=== PATIENT | female | born 1980 | race Caucasian/White ===

== ENCOUNTER 2016-05-31 09:31 | Observation (INO) ==
[2016-05-31] MEDS ORDERED: Ondansetron 4 MG/2 ML VIAL IVP PRN (10:56)
[2016-05-31] MEDS ORDERED: 0.9 % Sodium Chloride 1,000 ML IVC SCH (11:00)
[2016-05-31] MEDS ORDERED: Promethazine 12.5 MG in 0.9 % Sodium Chloride 50 ML IVPB PRN (11:08)
[2016-05-31] MEDS: *HR* OxyCODONE/APAP 5/325 TABLET PO PRN ×2 (11:58→18:41)
[2016-05-31 13:31] LABS: Basophils # 0.1 K/mcL (0.0-0.2); Basophils % 0.5 %; Eosinophils # 0.1 K/mcL (0.0-0.6); Hematocrit 35.1 % (35.3-44.9); Hemoglobin 11.1 g/dL (11.5-15.4); Immature Granulocytes % 0.3 % (0-4); Lymphocytes % 21.4 %; Mean Corpuscular HGB Conc 31.6 g/dL (31.6-35.5); Mean Corpuscular Hemoglobin 29.8 pg (28.0-33.3); Mean Corpuscular Volume 94.1 fL (83.0-100.0); Mean Platelet Volume 10.8 fL (9.4-12.4); Monocytes # 0.5 K/mcL (0.0-1.3); Monocytes % 5.8 %; Neutrophils # 6.5 K/mcL (1.6-8.9); Platelet Count 354 K/mcL (140-400); Red Blood Count 3.73 M/mcL (3.82-4.97); Red Cell Distribution Width 14.2 % (11.5-14.5)
[2016-05-31 13:42] LABS: BUN/Creatinine Ratio 14 (6-26); Blood Urea Nitrogen 11 mg/dL (7-20); Calcium 10.2 mg/dL (8.6-10.8); Carbon Dioxide 20 mEq/L (19-29); Chloride 105 mEq/L (98-109); Glucose 98 mg/dL (70-99); Osmolality,Calculated 293 (280-300); Potassium 4.2 mEq/L (3.5-4.5); Sodium 142 mEq/L (136-145); eGFR For African Americans > 60 (> 60); eGFR For Non-African Americans > 60 (> 60)
[2016-05-31 13:55] LABS: INR 1.2; Prothrombin Time 12.5 Seconds (9.4-12.1)
[2016-05-31 13:57] LABS: Activated Partial Thrombo Time 31.8 Seconds (26.0-36.0)
[2016-05-31] MEDS ORDERED: *HR* Promethazine 25 MG/ML VIAL ONE (14:10)
[2016-05-31] MEDS ORDERED: D5% in Water 0 ML ONE (14:10)
[2016-05-31] MEDS ORDERED: *HR* Promethazine 25 MG/ML VIAL IVP PRN (14:14)
[2016-05-31] MEDS: Vancomycin 1,250 MG in D5% in Water 250 ML IV SCH (15:21)
--- NOTE | 2016-05-31 16:31 | Orthopedic History & Physical ---
Date of Encounter: 05/31/16 Time of Encounter: 16:25 Assessment and Plan (1) Left knee pain Current visit: Yes Status: Acute Left Revision Tibial Component 04/27/16 Patient admitted for 24 hour observation secondary to increase in knee pain, N/ V and inability to ambulate. Activity: WBAT, Fall precautions, Cast placed Diet: Full Meds: Resume Home meds Start Colace 100mg PO TID prn constipation Start Zofran 4mg IV Q 6 hr prn nausea Start Percocet 5/325mg 1 tab PO Q 6 hr prn pain Start Vancomycin 1 g IV Q 12 hr dose per pharmacy Labs: CBC, Chem 7, PT/PTT Nursing: Incentive spirometer 10x Q 1 hour Foot pumps Orders: IVF NS 75 cc/hour Qualifiers: Chronicity: acute Qualified Code(s): M25.562 - Pain in left knee (2) S/P total knee replacement Current visit: Yes Status: Acute Qualifiers: Laterality: left Qualified Code(s): Z96.652 - Presence of left artificial knee joint (3) Nausea Current visit: Yes Status: Acute Started on IV Phenergan x 24 hours (4) Obesity (BMI 35.0-39.9 without comorbidity) Current visit: No Status: Chronic History of Present Illness Chief complaint: Increased Pain to Left Knee HPI: Ms. Cast is a 35 year old female, seen in the clinic today. s/p Left Revision Tibial component 04/27/16 with Patient is doing fair, she went ED today at [place] to remove her cast secondary to increase in her pain. She was seen 05/23/16 in the office secondary to worsening of pain and incision bleeding. She was started on Doxycycline at that time. 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 We discussed pain medication in depth. She has been on Tramadol and Percocet. ROM is difficult secondary to pain, and she is unable to WB on extremity secondary to pain. \. She will continue in cast to protect incision, patient is extremely active and we dicussed the additional protection needed to incision. Incision cleansed, MEsalt and Optifoam placed. Long leg cast placed. ICE and elevation, rest when swelling occurs. Notes: The Supervising Physician was available throughout the course of this treatment encounter. They were actively involved in all elements of the patient' s care to include diagnosis, care plan, and decision making and will be involved in the appropriate follow up care. Past Med Surg Social Fam HX - Past Medical History Medical history: cancer, migraine Psychiatric history: no psych history - Past Surgical History Surgical History: appendectomy, cholecystectomy, hysterectomy - Social History Smoking Status: Never smoker Smokeless Tobacco Status: No Alcohol use: none Drug use: none - Family History Mother Living Status: Hx Family Cancer: Yes Medications and Allergies Anastrozole [Arimidex] 1 mg PO HS 04/27/16 [History] Ferrous Sulfate [Iron] 325 mg PO HS 04/27/16 [History] Topiramate 50 mg PO BID 04/27/16 [History] Butalb/Acetaminophen/Caffeine [Fioricet 50-300-40 mg Capsule] 1 each PO Q8H PRN 05/31/16 [History] Doxycycline Hyclate [Morgidox] 100 mg PO Q12H 05/31/16 [History] Ondansetron ODT [Zofran ODT] 4 mg SL Q8H PRN 05/31/16 [History] Oxycodone HCl/Acetaminophen [Percocet 5-325 mg Tablet] 1 each PO Q6H PRN [History] Allergies metoclopramide [From Reglan] Allergy (Verified 05/31/16 11:32) Agitated morphine Allergy (Verified 05/31/16 11:32) Hives NSAIDS (Non-Steroidal Anti-Inflamma Allergy (Verified 05/31/16 11:32) Anaphylaxis prochlorperazine [From Compazine] Allergy (Verified 05/31/16 11:32) Agitated Sulfa (Sulfonamide Antibiotics) Allergy (Verified 05/31/16 11:32) Anaphylaxis vancomycin Adverse Reaction (Verified 05/31/16 11:32) Migraine All Systems Reviewed: A 10-system review of systems was performed and is negative for pertinent findings except as documented above in the HPI. - Constitutional Constitutional: as per HPI, frequent falls, weakness, other (N/V), no fever(s) - Cardiovascular Cardiovascular: as per HPI, no chest pain - Respiratory Respiratory: as per HPI, no cough - Musculoskeletal Musculoskeletal: abnormal gait, back pain, joint swelling, limited range of motion, muscle weakness, radiating pain into limb, no numbness Physical Exam - Constitutional Vitals: Temp Pulse Resp BP Pulse Ox 98.5 F 81 18 108/73 100 05/31/16 14:59 05/31/16 14:59 05/31/16 14:59 05/31/16 14:59 05/31/16 14:59 - Knee left Appearance: previous incision (clean, dry - proximal wound gapping minimal; no active drainage) Varus alignment in stance: No Valgus alignment in stance: No Tenderness with palpation knee: anterior, medial, lateral Pain: with flexion, with extension Gait: limping ROM: extension knee: Limited ROM: flexion knee: Limited Results - Labs Result Diagrams: 05/31/16 13:20 05/31/16 13:20 Labs: Abnormal lab results RBC 3.73 M/mcL (3.82-4.97) L 05/31/16 13:20 Hgb 11.1 g/dL (11.5-15.4) L 05/31/16 13:20 Hct 35.1 % (35.3-44.9) L 05/31/16 13:20 PT 12.5 Seconds (9.4-12.1) H 05/31/16 13:20 H & H 05/31/16 Range/Units 13:20 Hgb 11.1 L (11.5-15.4) g/dL Hct 35.1 L (35.3-44.9) % All other labs normal. - Diagnostic results Knee x-ray: report reviewed, image reviewed - VTE Documentation of Mechanical Device: Venous foot pump, device
[2016-05-31] MEDS ORDERED: Acetaminophen IV 1,000 MG/100 ML INFUS..BTL IVPB PRN (17:20)
[2016-05-31] MEDS ORDERED: Vancomycin 1,000 MG in D5% in Water 250 ML IVPB SCH (18:00)
[2016-05-31] MEDS: *HR* Promethazine 25 MG/ML VIAL IVP PRN (18:43)
[2016-06-01] MEDS: Vancomycin 1,250 MG in D5% in Water 250 ML IV SCH (01:47)
[2016-06-01] MEDS: *HR* Promethazine 25 MG/ML VIAL IVP PRN ×3 (01:48→12:10)
[2016-06-01] MEDS: *HR* OxyCODONE/APAP 5/325 TABLET PO PRN (01:48)
--- NOTE | 2016-06-01 07:55 | Discharge Summary ---
Date of Encounter: 06/01/16 Time of Encounter: 07:53 - Discharge Diagnosis (1) Left knee pain Priority: Primary Status: Acute Qualifiers: Chronicity: acute Qualified Code(s): M25.562 - Pain in left knee (2) Nausea Priority: Secondary Status: Chronic (3) Obesity (BMI 35.0-39.9 without comorbidity) Priority: Secondary Status: Chronic - Discharge Medications Prescriptions: Doxycycline Hyclate [Morgidox] 100 mg PO Q12H #20 capsule OxyCODONE/APAP 5/325 [Percocet 5/325 MG] 1 - 2 each PO Q6HR PRN #40 tablet PRN Reason: Pain Home Medications: Anastrozole [Arimidex] 1 mg PO HS 04/27/16 [History] Ferrous Sulfate [Iron] 325 mg PO HS 04/27/16 [History] Topiramate 50 mg PO BID 04/27/16 [History] Butalb/Acetaminophen/Caffeine [Fioricet 50-300-40 mg Capsule] 1 each PO Q8H PRN 05/31/16 [History] Ondansetron ODT [Zofran ODT] 4 mg SL Q8H PRN 05/31/16 [History] Oxycodone HCl/Acetaminophen [Percocet 5-325 mg Tablet] 1 each PO Q6H PRN [History] Doxycycline Hyclate [Morgidox] 100 mg PO Q12H #20 capsule 06/01/16 [Rx] OxyCODONE/APAP 5/325 [Percocet 5/325 MG] 1 - 2 each PO Q6HR PRN #40 tablet 06/01 [Rx] Allergies/Adverse Reactions: Allergies metoclopramide [From Reglan] Allergy (Verified 05/31/16 11:32) Agitated morphine Allergy (Verified 05/31/16 11:32) Hives NSAIDS (Non-Steroidal Anti-Inflamma Allergy (Verified 05/31/16 11:32) Anaphylaxis prochlorperazine [From Compazine] Allergy (Verified 05/31/16 11:32) Agitated Sulfa (Sulfonamide Antibiotics) Allergy (Verified 05/31/16 11:32) Anaphylaxis vancomycin Adverse Reaction (Verified 05/31/16 11:32) Migraine Labs on day of discharge: Labs from last 24 hours 05/31/16 05/31/16 05/31/16 13:20 13:20 13:20 WBC 9.2 RBC 3.73 L Hgb 11.1 L Hct 35.1 L MCV 94.1 MCH 29.8 MCHC 31.6 RDW 14.2 Plt Count 354 MPV 10.8 Immature Gran % 0.3 Seg Neutrophils % 71.0 Lymphocytes % 21.4 Monocytes % 5.8 Eosinophils % 1.0 Basophils % 0.5 Neutrophils # 6.5 Lymphocytes # 2.0 Monocytes # 0.5 Eosinophils # 0.1 Basophils # 0.1 PT 12.5 H INR 1.2 APTT 31.8 Sodium 142 Potassium 4.2 Chloride 105 Carbon Dioxide 20 BUN 11 Creatinine 0.77 Est GFR ( Amer) > 60 Est GFR (Non-Af Amer) > 60 BUN/Creatinine Ratio 14 Glucose 98 Calculated Osmolality 293 Calcium 10.2 Date of admission: 05/31/16 10:03 Primary care physician: PCP NO Consults: 05/31/16 12:27 Consult to Invasive Line Access Team [CONS] Routine Reason for Consult: no access Line Type: EPIV - Patient Status Disposition: Home, Self-Care Condition: Fair Functional capacity at discharge: uses cane/walker Overall status at discharge: patient is progressing back to baseline - Discharge Instructions Follow Up With: NO,PCP [Primary Care Provider] - - Hospital Course Hospital course: Ms. Csat is a 35 year old female - Time Spent with Patient Total time spent providing and/or coordinating discharge services: - VTE Documentation of Mechanical Device: Venous foot pump, device
--- NOTE | 2016-06-01 08:08 | Orthopedics Progress Note ---
Date of Encounter: 06/01/16 Time of Encounter: 08:07 - Assessment and Plan (1) Left knee pain Current Visit: Yes Status: Acute Qualifiers: Chronicity: acute Qualified Code(s): M25.562 - Pain in left knee (2) Nausea Current Visit: Yes Status: Chronic (3) Obesity (BMI 35.0-39.9 without comorbidity) Current Visit: No Status: Chronic Subjective Interval history: Patient seen this morning resting comfortably still complaining of pain Cast intact plan for discharge today patient has been unreasonable overnight with the staff challenging manipulating. Patient is stable for discharge Objective Vital signs: Vital Signs Temp Pulse Resp BP Pulse Ox 06/01/16 06:47 97.8 F 80 16 106/74 100 06/01/16 02:03 98.0 F 66 15 120/62 97 05/31/16 20:16 97.7 F 78 15 111/78 95 05/31/16 14:59 98.5 F 81 18 108/73 100 05/31/16 10:19 98.5 F 80 16 130/84 95 Intake and Output 05/31/16 06/01/16 06/01/16 23:59 07:59 15:59 Intake Total 550 / 550 450 / 450 Balance 550 / 550 450 / 450 Intake: IV Fluids 350 / 350 250 / 250 Vancocin 1,250 MG In 250 / 250 250 / 250 Dextrose 5% 250 ML @ 167 mls/hr IV Q12H ESEQUIEL Rx#: [id number] Ofirmev 1,000 mg In 100 100 / 100 ml @ 400 mls/hr IVPB Q6HR PRN Rx#:[id number] Oral 200 / 200 200 / 200 - Labs CBC & BMP: 05/31/16 13:20 05/31/16 13:20 Labs: Abnormal lab results RBC 3.73 M/mcL (3.82-4.97) L 05/31/16 13:20 Hgb 11.1 g/dL (11.5-15.4) L 05/31/16 13:20 Hct 35.1 % (35.3-44.9) L 05/31/16 13:20 PT 12.5 Seconds (9.4-12.1) H 05/31/16 13:20 - VTE Documentation of Mechanical Device: Venous foot pump, device Consult Discharge Plan - Plan Referrals: NO,PCP [Primary Care Provider] - Prescriptions: Doxycycline Hyclate [Morgidox] 100 mg PO Q12H #20 capsule OxyCODONE/APAP 5/325 [Percocet 5/325 MG] 1 - 2 each PO Q6HR PRN #40 tablet PRN Reason: Pain
[2016-06-01] MEDS ORDERED: Scopolamine Patch 1.5 MG PATCH.TD72 TD ONE (09:44)
[2016-06-01] MEDS ORDERED: *HR* HYDROmorphone (PF) 1 MG/ML SYRINGE IVP ONE (11:50)
[2016-06-01 12:28] VITALS: BP 120/86
[2016-06-01] MEDS ORDERED: Aminoglycoside Consult 1 EACH MC ONE (12:49)
== END 2016-06-01 12:50 | disposition home or self-care (01) ==
LOC: 3NENU
PROVIDERS: ADMIT Physician Assistant; ATTEND Orthopaedic Surgery

== ENCOUNTER 2017-09-08 11:39 | Inpatient (IN) ==
[2017-09-08] MEDS ORDERED: Famotidine 20 MG/2 ML VIAL IVP ONE (11:44)
[2017-09-08] MEDS ORDERED: Scopolamine Patch 1.5 MG PATCH.TD72 TD ONE (11:44)
[2017-09-08] MEDS ORDERED: Acetaminophen IV 1,000 MG/100 ML INFUS..BTL IVPB ONE (11:45)
[2017-09-08] MEDS ORDERED: Pregabalin 75 MG CAPSULE PO ONE (11:45)
--- NOTE | 2017-09-08 11:50 | Anesthesia Evaluation PreOp ---
Date of Encounter: 09/08/17 Time of Encounter: 11:47 - Past History Planned Operation: REvision L-TKR Cardiac History: Denies any Significant Hx Pulmonary History: Denies Any Significant HX UTILIZATION REVIEW COORDINATOR History: Denies Any Significant HX Other Medical History: Other (Hx Breast CA 2010 s/p Arimidex tx) Anesthesia History: No Prior Anesthetic Complications, Past Anesthesia (C- section x 3, KNee scope x 13, Hyster, Sun, L-unicondylar knee replacement 2014 , Cement spacer/Tibial revision 2015) Alcohol Use: none Drug use: none Medications and Allergies Anastrozole [Arimidex] 1 mg PO HS 04/27/16 [History] Ferrous Sulfate [Iron] 325 mg PO HS 04/27/16 [History] Topiramate 50 mg PO BID 04/27/16 [History] Butalb/Acetaminophen/Caffeine [Fioricet 50-300-40 mg Capsule] 1 each PO Q8H PRN 05/31/16 [History] Ondansetron ODT [Zofran ODT] 4 mg SL Q8H PRN 05/31/16 [History] Oxycodone HCl/Acetaminophen [Percocet 5-325 mg Tablet] 1 each PO Q6H PRN [History] Doxycycline Hyclate [Morgidox] 100 mg PO Q12H #20 capsule 06/01/16 [Rx] OxyCODONE/APAP 5/325 [Percocet 5/325 MG] 1 - 2 each PO Q6HR PRN #40 tablet 06/01 [Rx] 3 Allergy/AdvReac Type Severity Reaction Status Date / Time metoclopramide [From Reglan] Allergy Agitated Verified 09/05/17 10:51 morphine Allergy Hives Verified 09/05/17 10:51 NSAIDS (Non-Steroidal Allergy Anaphylaxis Verified 09/05/17 10:51 Anti-Inflamma prochlorperazine Allergy Agitated Verified 09/05/17 10:51 [From Compazine] Sulfa (Sulfonamide Allergy Anaphylaxis Verified 09/05/17 10:51 Antibiotics) vancomycin AdvReac Migraine Verified 09/05/17 10:51 - Meds/Allergy Pre-op Review Medications Reviewed: Yes Allergies Reviewed: Yes Beta Blockers on Current Med List: No Anesthesia Results - Labs Laboratory Tests 05/31/16 09/05/17 09/05/17 13:20 11:15 11:15 WBC 6.1 Hgb 11.4 L Hct 35.7 Plt Count 313 PT 11.9 INR 1.1 APTT 33.5 Sodium Potassium Chloride Carbon Dioxide BUN Creatinine Est GFR (Non-Af Amer) Glucose 98 09/05/17 11:15 WBC Hgb Hct Plt Count PT INR APTT Sodium 142 Potassium 3.9 Chloride 103 Carbon Dioxide 27 BUN 8 Creatinine 0.64 Est GFR (Non-Af Amer) > 60 Glucose Anesthesia Exam O2 Sat Height 1.5 m Weight 85.275 kg O2 Sat Vital Signs Temp Pulse Resp BP Pulse Ox 98.1 F 68 18 122/76 96 09/08/17 11:56 09/08/17 11:56 09/08/17 11:56 09/08/17 11:56 09/08/17 11:56 Height: 5'0 Weight: 190# BMI = 38 NPO (# of Hours): MNOc Pain Scale Used: Numeric (1 - 10) - HEENT Pupil (Motor): Pupils equal, EOMI Mallampati: II Teeth: Normal Oral Opening: Greater than 3 - UTILIZATION REVIEW COORDINATOR LOC: Oriented UTILIZATION REVIEW COORDINATOR Motor: Normal RUE, Normal LUE, Normal RLE, Normal LLE, Normal Face UTILIZATION REVIEW COORDINATOR Sensory: Normal: RUE, LUE, RLE, LLE, Face - Cardiac Rhythm: Regular Murmur: None - Pulmonary Breath Sounds: bilateral Clear Respiratory Effort: Symmetrical Anesthesia Assess/Plan ASA Score: 3 (Obesity, Migraines, Breast CA) Modified Daniel Scale for Level of Consciousness: Cooperative, oriented, and tranquil Anesthetic Plan: General, Regional Monitoring Plan: Standard Monitors Recovery Plan: PACU Anes Supervising Prov Stmt: Pt seen/evaluated, R&B Discussed, questions answered and consent obtained - MD Destin
[2017-09-08] MEDS ORDERED: Ethanol\\Acetic Acid\\Na Ace\\Ben 1,000 ML IRRIG.SOLN IR ONE (11:54)
[2017-09-08] MEDS ORDERED: CeFAZolin Syr 2,000MG/20 ML 2,000 MG/20 ML SYRINGE IVPB ONE (11:55)
[2017-09-08] MEDS ORDERED: Ringers Solution, Lactated 1,000 ML IVC SCH (12:00)
--- NOTE | 2017-09-08 12:00 | History & Physical Report ---
Date of Encounter: 09/08/17 Time of Encounter: 12:00 24 Hour HP Update - Instructions Instructions: If the History and Physical is less than 30 days old and was completed prior to A.M. admission and or procedure and has NOT been updated on calendar day of procedure please complete this update prior to performing procedure. - Update Patient reports changes in Medical Condition: No Changes in examination, assessment, or condition: No Changes in Medication: No Preop tests/diagnostics Reviewed: Yes Surgery Remains Indicated: Yes Consent for Planned Operative Procedure(s) Verified: Yes - Pre-Operative Checklist Preoperative Checklist Indicated: No Prophylactic Antibiotic Ordered: Yes Is VTE Prophylaxis Indicated?: Yes
[2017-09-08] MEDS ORDERED: cloNIDine HCl 0.1 MG TABLET PO ONE (12:06)
[2017-09-08] MEDS ORDERED: *HR* Propofol 200 MG/20 ML VIAL IVP ONE (12:08)
[2017-09-08] MEDS ORDERED: *HR* FentaNYL (PF) 100 MCG/2 ML VIAL ONE ×2 (12:08→12:09)
[2017-09-08] MEDS ORDERED: *HR* Midazolam HCl 2 MG/2 ML VIAL ONE (12:08)
[2017-09-08] MEDS ORDERED: Lidocaine -MPF 2% 2 ML VIAL ONE ×2 (12:13→12:31)
--- NOTE | 2017-09-08 12:17 | Discharge Summary ---
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 Qualifiers: Encounter type: subsequent encounter Qualified Code(s): T84.038D - Mechanical loosening of other internal prosthetic joint, subsequent encounter; Z96.659 - Presence of unspecified artificial knee joint; Z96.659 - Presence of unspecified artificial knee joint (2) Left knee pain Status: Chronic Qualifiers: Chronicity: chronic Qualified Code(s): M25.562 - Pain in left knee; G89.29 - Other chronic pain; G89.29 - Other chronic pain (3) S/P total knee replacement Status: Acute Qualifiers: Laterality: left Qualified Code(s): Z96.652 - Presence of left artificial knee joint (4) Migraines Status: Chronic (5) Obesity (BMI 35.0-39.9 without comorbidity) Status: Chronic - Hospital Course Hospital course: Ms. Cast is a 36 year old female - Time Spent with Patient Total time spent providing and/or coordinating discharge services: - Discharge Medications Prescriptions: Rivaroxaban [Xarelto] 10 mg PO DAILY 12 Days #12 tablet Home Medications: Anastrozole [Arimidex] 1 mg PO HS 04/27/16 [History] Ferrous Sulfate [Iron] 325 mg PO HS 04/27/16 [History] Butalb/Acetaminophen/Caffeine [Fioricet 50-300-40 mg Capsule] 1 each PO Q8H PRN 05/31/16 [History] Ondansetron ODT [Zofran ODT] 4 mg SL Q8H PRN 05/31/16 [History] Fluticasone Propionate Nasal [Flonase] 1 spr NS DAILY 09/08/17 [History] Oxycodone HCl/Acetaminophen [Percocet 5-325 mg Tablet] 1 each PO Q6H 5 Days #20 tablet 09/08/17 [Rx] Rivaroxaban [Xarelto] 10 mg PO DAILY 12 Days #12 tablet 09/08/17 [Rx] Topiramate [Topiramate] 25 mg PO BID 09/08/17 [History] Allergies/Adverse Reactions: 3 Allergy/AdvReac Type Severity Reaction Status Date / Time metoclopramide [From Reglan] Allergy Agitated Verified 09/05/17 10:51 morphine Allergy Hives Verified 09/05/17 10:51 NSAIDS (Non-Steroidal Allergy Anaphylaxis Verified 09/05/17 10:51 Anti-Inflamma prochlorperazine Allergy Agitated Verified 09/05/17 10:51 [From Compazine] Sulfa (Sulfonamide Allergy Anaphylaxis Verified 09/05/17 10:51 Antibiotics) vancomycin AdvReac Migraine Verified 09/05/17 10:51 Date of admission: 09/08/17 15:50 Primary care physician: PCP NONE Consults: 09/08/17 15:56 Consult to Occupational Therapy [CONS] Routine Comment: Evaluate, develop and implement POC Reason for Consult: post knee surgery Does patient have active BEDREST order?: No Is patient medically & hemodynamically stable?: Yes Consult to Orthopedic Navigator [CONS] [CONS] Routine Consult to Physical Therapy [CONS] Routine Comment: Evaluate, develop and impliment POC Reason for Consult: post knee surgery Does patient have active BEDREST order?: No Is patient medically & hemodynamically stable?: Yes Consult to Vp Of Marketing [CONS] Routine Reason for SW Consult: post op joint replacement RT Post Op Consult [CONS] Routine Labs on day of discharge: Labs from last 24 hours 09/08/17 15:02 Hgb 9.5 L D Hct 29.1 L - Impressions ITS Impressions Knee X-Ray 09/08/17 10:06 IMPRESSION: Status post total knee arthroplasty revision without evidence for immediate postoperative hardware complication. D/ / Federico Thornton MD / Federico Thornton MD Interpreting Provider: Federico Thornton MD - Patient Status Disposition: Home Health Service Condition: Good - Discharge Instructions Instructions: Revision Total Joint Arthroplasty (DC) Follow Up With: Diamond Fuentes, PAC [Physician Special Delivery Mail Carrier] - 09/12/17 (Per Dr. Perez follow- up in monday rather than . Office to call patient tomorrow with time. ) NONE,PCP [Primary Care Provider] - Additional Instructions: Discharge Instructions: Total Knee Replacement Please call [facility] ([phone]), your Primary Care Physician, or report to the Emergency Room if you have any of the following symptoms: Nausea, vomiting, fever greater that 101.5, swelling, chest pain, shortness of breath, increased pain/redness/drainage/odor for your incision site, numbness/ tingling, or any other concerning symptoms. ACTIVITY:Weight-bearing as tolerated. You may progress off support walker as tolerated. MEDICATIONS: Upon discharge resume your home medications. Take all the medications as prescribed. Take a stool softener if taking narcotic pain medications. Stool softeners are only effective if you drink enough fluids. Drink 6-8 glass of water or fluids a day, unless this is not allowed for another health problem. Despite using stool softeners, if you haven't had a bowel movement in 3 days, please switch to a gentle laxative. Gentle laxatives are sold over the counter. You should have a bowel movement within 24 hours, if not call the office. You will be discharged from the hospital with a prescription for pain medication. You are encouraged to decrease the use of narcotic pain medication as tolerated. Should you require a refill, please call the office. [facility] prescribes narcotic pain medication for only 4-6 weeks after surgery. If you require pain medication beyond this time period, you may be referred to your Primary Care Physician or to the Pain Clinic for further evaluation. Plan ahead for refills on pain medication as many narcotics either need to be picked up at the office or mailed. It is best to call 48-72 hours in advance of needing a prescription refill so you don't run out of medication. To help control the post-operative pain, you may take NSAIDs (Aleve,Advil, Motrin, Ibuprofen, Naprosyn) or Tylenol as prescribed on the bottle in addition to the pain medication. ANTICOAGULATION (blood thinners): Continue your Aspirin, Lovenox or Coumadin as prescribed to help prevent a blood clot in the leg or in the lungs. As long as your incision remains dry and you tolerate the NSAIDs (Aleve, Advil, Motrin, ibuprofen, naprosyn), it is OK to use the NSAIDS while you are taking your anticoagulation medication. Should your incision start to drain, stop the NSAID and contact our office. Common symptoms of blood clot in the legs include: localized pain, swelling, calf tenderness, redness or discoloration of the skin. Blood clot in the lung symptoms include: shortness of breath, rapid pulse, sweating, and chest pain that worsens with deep breathing, coughing up blood, lightheadedness, feelings of anxiety. If you experience any of these symptoms notify your physician immediately, go to the emergency room, or if having trouble breathing, call 911. WOUND CARE: Leave the dressing on for 7 to 10days. You may change the dressing if it becomes saturated greater than 50%. Do not get the dressing wet at anytime. Wash your hands with antibacterial soap, rinse and dry prior to any wound care. If you have dominic the visiting nurse or rehab facility can remove the stapes 10-14 days after surgery and place steri-strips across the wound. Leave the steri-strips in place until they fall off on their won. You may let water from the shower run on top of the steri-strips. If you do not have a visiting nurse or rehab facility, you will need to return to the office at 10-14 days for the dominic to be removed. If you have itching or redness around the dressing call the office. FOLLOW-UP: Please follow up with your surgeon in the orthopedic clinic in 4 weeks from the day of surgery. If you have dominic that need to be removed, you will need to come back to the office in 10-14 days from the day of surgery. <Bacilio Perez - Last Filed: 09/11/17 14:57> Orders not resulted at time of discharge: Pending orders 09/08/17 10:05 Hemoglobin and Hematocrit [HEME] Routine 09/08/17 10:06 XR knee LT limited 1-2V [XR] Routine 09/08/17 11:52 US anesthesia pain block [US] Routine Date of Encounter: 09/11/17 Time of Encounter: 14:56 - Discharge Diagnosis (1) Aseptic loosening of prosthetic knee Priority: Primary Status: Chronic Qualifiers: Encounter type: subsequent encounter Qualified Code(s): T84.038D - Mechanical loosening of other internal prosthetic joint, subsequent encounter; Z96.659 - Presence of unspecified artificial knee joint; Z96.659 - Presence of unspecified artificial knee joint (2) Obesity (BMI 35.0-39.9 without comorbidity) Priority: Secondary Status: Chronic (3) Left knee pain Priority: Secondary Status: Chronic Qualifiers: Chronicity: chronic Qualified Code(s): M25.562 - Pain in left knee; G89.29 - Other chronic pain; G89.29 - Other chronic pain (4) Nausea Priority: Secondary Status: Chronic (5) S/P total knee replacement Priority: Secondary Status: Acute Qualifiers: Laterality: left Qualified Code(s): Z96.652 - Presence of left artificial knee joint (6) Acute blood loss anemia Priority: Primary Status: Acute - Hospital Course Hospital course: Ms. Cast is a 36 year old female Status post revision total knee patient with acute blood loss anemia received 2 units prior to discharge hematocrit on discharge 31 The patient had an uneventful postoperative course. They received antibiotics and physical therapy and were discharged in stable condition. There will follow -up in the office in 2 weeks. - Time Spent with Patient Total time spent providing and/or coordinating discharge services: Primary care physician: PCP DARYA
[2017-09-08] MEDS ORDERED: Ondansetron 4 MG/2 ML VIAL ONE (12:31)
[2017-09-08] MEDS ORDERED: Dexamethasone 4 MG/ML VIAL ONE (12:31)
[2017-09-08] MEDS ORDERED: MORPHINE SUL Oral CONC 10 MG/0.5 ML ORAL.SYG SL PRN (12:43)
[2017-09-08] MEDS ORDERED: *HR* Meperidine 25 MG/ML SYRINGE IVP PRN (12:43)
[2017-09-08] MEDS ORDERED: *HR* HYDROmorphone 2 MG TABLET PO PRN (12:43)
[2017-09-08] MEDS ORDERED: Ondansetron 4 MG/2 ML VIAL IVP ONE (12:43)
[2017-09-08] MEDS ORDERED: *HR* OxyCODONE Immed Rel 5 MG TABLET PO PRN (12:43)
[2017-09-08] MEDS ORDERED: *HR* Labetalol 20 MG/4 ML SYRINGE IVP PRN (12:43)
--- NOTE | 2017-09-08 12:56 | Physician Discharge Referral ---
Home Health/Hosp Referral Info Transfer to: Home Health Attending Provider: Dr. 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 For more information, call the [place] Tobacco Quit Line at 3-264-YNAM-NOW. - Dressing/Wound Care Site: Left knee Type of Dressing/Treatments w/Frequency: Opsite placed. Keep dressing intact until first follow up appointment. If greater than 50% saturated, notify office, remove dressing and place appropriate dressing back in place. Leave Zipline and dominic intact. Opsite dressing is water resistant, not water-proof. OK to shower, but do not get dressing wet. - Diet/Nutrition Diet/Nutrition Orders: Regular - Activity Activity Orders: Up ad kirstin, Ambulate, Chair, Walker - Services Needed Following services are medically necessary services: Nursing, Home Health Aide, Physical Therapy, Occupational Therapy Home Care Orders: Total Knee replacement Precautions x 6 weeks Apply cold therapy wrap 3-6x/day for 20 minutes at a time. Encourage ambulation throughout the day and incentive spirometer 10x/hour. Elevate affected extremity above heart as tolerated. Brace: NO KNEE MOTION - continue in brace. Remove for hygeine purposes only. - Transfer Medications Home Medications: Anastrozole [Arimidex] 1 mg PO HS 04/27/16 [History] Ferrous Sulfate [Iron] 325 mg PO HS 04/27/16 [History] Topiramate 50 mg PO BID 04/27/16 [History] Butalb/Acetaminophen/Caffeine [Fioricet 50-300-40 mg Capsule] 1 each PO Q8H PRN 05/31/16 [History] Ondansetron ODT [Zofran ODT] 4 mg SL Q8H PRN 05/31/16 [History] Oxycodone HCl/Acetaminophen [Percocet 5-325 mg Tablet] 1 each PO Q6H PRN [History] Doxycycline Hyclate [Morgidox] 100 mg PO Q12H #20 capsule 06/01/16 [Rx] OxyCODONE/APAP 5/325 [Percocet 5/325 MG] 1 - 2 each PO Q6HR PRN #40 tablet 06/01 [Rx] Oxycodone HCl/Acetaminophen [Percocet 5-325 mg Tablet] 1 each PO Q6H 5 Days #20 tablet 09/08/17 [Rx] Allergies/Adverse Reactions: 3 Allergy/AdvReac Type Severity Reaction Status Date / Time metoclopramide [From Reglan] Allergy Agitated Verified 09/05/17 10:51 morphine Allergy Hives Verified 09/05/17 10:51 NSAIDS (Non-Steroidal Allergy Anaphylaxis Verified 09/05/17 10:51 Anti-Inflamma prochlorperazine Allergy Agitated Verified 09/05/17 10:51 [From Compazine] Sulfa (Sulfonamide Allergy Anaphylaxis Verified 09/05/17 10:51 Antibiotics) vancomycin AdvReac Migraine Verified 09/05/17 10:51 Certification: Further, I certify that my clinical findings support that this patient is homebound (i.e. absences from home require considerable and taxing effort and are for medical reasons or druze services or infrequently or short duration when for other reasons) because: Homebound Reason: Post-surgery restriction and or conditions limit ability to leave home Attestation: My signature below is to certify that this patient is under my care and that I, or nurse practitioner, or a physician reference assistant working with me, has a face-to- face encounter with this patient.
--- NOTE | 2017-09-08 13:03 | Physician Discharge Referral ---
ExtendedCare Referral Info Transfer To: [facility] Provider in Charge: Dr. 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 (2) Left knee pain Priority: Primary Status: Chronic (3) S/P total knee replacement Priority: Primary Status: Acute (4) Migraines Priority: Secondary Status: Chronic (5) Obesity (BMI 35.0-39.9 without comorbidity) Priority: Secondary Status: Chronic Expected Duration of Placement: Less than 30 days Prognosis: Good Aware of Diagnosis: Patient Aware of Prognosis: Patient - Transfer Medications Home Medications: Anastrozole [Arimidex] 1 mg PO HS 04/27/16 [History] Ferrous Sulfate [Iron] 325 mg PO HS 04/27/16 [History] Topiramate 50 mg PO BID 04/27/16 [History] Butalb/Acetaminophen/Caffeine [Fioricet 50-300-40 mg Capsule] 1 each PO Q8H PRN 05/31/16 [History] Ondansetron ODT [Zofran ODT] 4 mg SL Q8H PRN 05/31/16 [History] Oxycodone HCl/Acetaminophen [Percocet 5-325 mg Tablet] 1 each PO Q6H PRN [History] Doxycycline Hyclate [Morgidox] 100 mg PO Q12H #20 capsule 06/01/16 [Rx] OxyCODONE/APAP 5/325 [Percocet 5/325 MG] 1 - 2 each PO Q6HR PRN #40 tablet 06/01 [Rx] Oxycodone HCl/Acetaminophen [Percocet 5-325 mg Tablet] 1 each PO Q6H 5 Days #20 tablet 09/08/17 [Rx] Allergies/Adverse Reactions: 3 Allergy/AdvReac Type Severity Reaction Status Date / Time metoclopramide [From Reglan] Allergy Agitated Verified 09/05/17 10:51 morphine Allergy Hives Verified 09/05/17 10:51 NSAIDS (Non-Steroidal Allergy Anaphylaxis Verified 09/05/17 10:51 Anti-Inflamma prochlorperazine Allergy Agitated Verified 09/05/17 10:51 [From Compazine] Sulfa (Sulfonamide Allergy Anaphylaxis Verified 09/05/17 10:51 Antibiotics) vancomycin AdvReac Migraine Verified 09/05/17 10:51 - Respiratory Orders Smoking Cessation: Smoking cessation has been advised. For more information, call the [place] Tobacco Quit Line at 0-333-WYSE-NOW. - Ancillary Orders May use pressure relief devices daily prn, May go on MARVIN w/family/respon constitution party w /meds at nurse discretion PRN, May consult with Dentist, Professor Of Genetics, Supervisor Inspecting PRN - Mobility Orders Chair, Ambulate - Rehabiliation Orders Rehab Potential: Good Rehab Orders: Evaluation for Physical Therapy, Evaluation for Occupational Therapy Other: Total Knee replacement Precautions x 6 weeks Apply cold therapy wrap 3-6x/day for 20 minutes at a time. Encourage ambulation throughout the day and incentive spirometer 10x/hour. Elevate affected extremity above heart as tolerated. Brace: NO KNEE MOTION - continue in brace. Remove for hygeine purposes only. - Treatments Skin tear care topically daily PRN per policy List/Other: Opsite placed. Keep dressing intact until first follow up appointment. If greater than 50% saturated, notify office, remove dressing and place appropriate dressing back in place. Leave Zipline and dominic intact. Opsite dressing is water resistant, not water-proof. OK to shower, but do not get dressing wet. - Diet Orders Regular CERTIFICATION: I certify that the transfer of the above named patient to an Extended Care Facility is necessary for the continuing treatment of the diagnosis listed. The above information is true and accurate reflection of patient's current condition. Confidential - Redisclosure prohibited without a patient's written consent.
--- NOTE | 2017-09-08 14:26 | Orthopedic Operative Note ---
Date of procedure: 09/08/17 Pre-op diagnosis: unstable loose left total knee Post-op diagnosis: same Procedure: Procedure: Left revision total knee Estimated blood loss: 400 Hardware: Metal and polyethylene replacement. Biomet SSK femur: 60, 12 x 80 stem Tibia: 67, small winging 5 mm augment medial and lateral 10 x 80 stem Constrained Neida : 18 Exam Under anesthesia: Mid flexion varus valgus instability. Flexion and extension well-healed incision no swelling or erythema Procedural Notes: Loosening of tibial component, gross instability. Operative procedure: The patient was brought to the operating room and placed on the operating room table. After general anesthesia was administered the operative knee was examined. Findings were noted in the exam under anesthesia. The operative extremity was prepped and draped in sterile surgical fashion. The patient received IV antibiotics prior to skin incision. A standard midline incision was made centered over the patella through the old incision. The incision was made through the skin and subcutaneous tissue. A medial parapatellar tendon approach was performed. Care was taken to preserve tissue along the medial aspect of the patella. And to protect the patella tendon. The deep MCL was released off the medial tibia. The infra patella fat pad was excised. Fluid was encountered this was normal joint fluid, Cultures were obtained and gram . The knee was brought into flexion the poly-was removed. The interface between the patient's femoral component and distal femur were disrupted with a osteotome and oscillating saw. Femoral component was removed removed without significant bone loss. Attention was then turned to the tibial component. The same technique was used to remove the tibial component by disrupting the interface between the patient's tibial component and the patients proximal tibia. The tibial component was loose, was removed without significant bone loss. The tibia was sized to a 67 was reamed up to a 10 x 80 Trial had good fit and fixation with a small winging and with medial and lateral 5 mm augments. The femur was sized to a 60, was reamed up to a 12 x 80 The finishing guide was seated and the box cut was made. The trial had good fit and fixation. Both trial components were seated and the 18th constrained Neida was seated and secured. The knee had full flexion and full extension with no instability. Patella had excellent patella tracking. The trial components were removed. The knee was irrigated with an antibacterial saline solution. It was irrigated out with 2 L of pulse irrigation. The components were assembled on the back table, the tibia cemented first followed by the femur. The 18 constrained liner was seated and secure. The knee was brought to full extension while the cement hardened. After the cement hardened the knee was irrigated out again. The extensor mechanism was closed with a running #2 PDS suture. The deep tissue was irrigated and closed deep with #1 PDS suture superficially with 0 PDS suture. The skin was closed with skin dominic. The patient was placed in a sterile dressing and postoperative brace. They were extubated and transferred to recovery room in stable condition. Anesthesia: GETA Surgeon: Bacilio Perez Was there an news assistant present: No Estimated blood loss (cc): 400 Condition: stable Disposition: PACU
[2017-09-08] MEDS: *HR* HYDROmorphone (PF) 1 MG/ML SYRINGE IVP SCH ×4 (14:50→15:05)
--- NOTE | 2017-09-08 15:17 | Anesthesia Evaluation Post Op ---
Date of Encounter: 09/08/17 Time of Encounter: 15:15 - Vital Signs Vital Signs: Last Vital Signs Temp 98.3 F 09/08/17 15:02 Pulse 80 09/08/17 15:12 Resp 16 09/08/17 15:12 BP 122/76 09/08/17 15:12 Pulse Ox 95 09/08/17 15:12 - Lungs Lungs: Clear Ascult./Percussion - Airway Airway: Non-obstructed - Cardiovascular Regular Rate - Mental Status Mental Status: Alert & Oriented, Answers Appropriately - Pain Pain Scale: 7 Pain Scale used: Numeric (1 - 10) - Nausea Vomiting Nausea Vomiting: Not Present - Hydration Hydration: Tolerates oral liquids, Ice chips - Discharge PostOp Status: Transfer Patient to floor
[2017-09-08 15:24] LABS: Hematocrit 29.1 % (35.3-44.9)
[2017-09-08 15:25] LABS: Hemoglobin 9.5 g/dL (11.5-15.4)
[2017-09-08] MEDS ORDERED: Ondansetron ODT 4 MG TAB.RAPDIS SL PRN (15:56)
[2017-09-08] MEDS ORDERED: Naloxone 0.4 MG/ML INJ IVP PRN (15:56)
[2017-09-08] MEDS ORDERED: Sennosides 8.6 MG TABLET PO PRN (15:56)
[2017-09-08] MEDS ORDERED: Temazepam 15 MG CAPSULE PO PRN (15:56)
[2017-09-08] MEDS ORDERED: MOM Conc 10 ML UD.LIQ PO PRN (15:56)
[2017-09-08] MEDS ORDERED: traMADol 50 MG TABLET PO PRN (15:56)
[2017-09-08] MEDS: Doxycycline 100 MG CAPSULE PO SCH (16:42)
[2017-09-08] MEDS: *HR* OxyCODONE Immed Rel 5 MG TABLET PO PRN ×2 (16:43→21:49)
[2017-09-08] MEDS: Acetaminophen/Butalbital/CaffeineTABLET PO PRN (17:03)
[2017-09-08] MEDS: CeFAZolin Pre 2,000 MG/100 ML 2,000 MG/100 ML BAG IVPB SCH (17:03)
[2017-09-08] MEDS: Ondansetron 4 MG/2 ML VIAL IVP PRN ×2 (17:04→23:24)
[2017-09-08] MEDS ORDERED: *HR* Enoxaparin 30 MG/0.3 ML SYRINGE SQ SCH ×2 (18:00)
[2017-09-08] MEDS: Ringers Solution, Lactated 1,000 ML IVC SCH (18:11)
[2017-09-08] MEDS: *HR* Morphine 2 MG/ML SYRINGE IVP PRN ×2 (18:11→23:24)
[2017-09-08] MEDS: Topiramate 25 MG TABLET PO SCH (19:35)
[2017-09-08] MEDS: *HR* Promethazine 25 MG/ML VIAL IVP PRN (19:35)
[2017-09-08] MEDS: Anastrozole 1 MG TABLET PO SCH (19:35)
[2017-09-09] MEDS: CeFAZolin Pre 2,000 MG/100 ML 2,000 MG/100 ML BAG IVPB SCH (00:46)
[2017-09-09 01:29] LABS: Hematocrit 22.2 % (35.3-44.9)
[2017-09-09 01:30] LABS: Hemoglobin 7.3 g/dL (11.5-15.4)
[2017-09-09] MEDS: *HR* Morphine 2 MG/ML SYRINGE IVP PRN ×5 (03:56→23:25)
[2017-09-09] MEDS: *HR* Promethazine 25 MG/ML VIAL IVP PRN ×4 (03:57→23:25)
[2017-09-09] MEDS: Doxycycline 100 MG CAPSULE PO SCH ×2 (03:57→15:41)
[2017-09-09 04:38] LABS: BUN/Creatinine Ratio 14 (6-26); Blood Urea Nitrogen 9 mg/dL (6-20); Calcium 9.1 mg/dL (8.6-10.3); Carbon Dioxide 20 mEq/L (23-29); Chloride 105 mEq/L (98-107); Glucose 120 mg/dL (70-105); Osmolality,Calculated 288 (280-300); Potassium 4.8 mEq/L (3.5-5.1); Sodium 139 mEq/L (136-145); eGFR For African Americans > 60 (> 60); eGFR For Non-African Americans > 60 (> 60)
[2017-09-09] MEDS: *HR* OxyCODONE Immed Rel 5 MG TABLET PO PRN ×3 (06:55→18:49)
[2017-09-09] MEDS: Ondansetron 4 MG/2 ML VIAL IVP PRN ×2 (06:56→15:41)
[2017-09-09] MEDS: Topiramate 25 MG TABLET PO SCH ×2 (08:23→23:28)
[2017-09-09] MEDS: Acetaminophen/Butalbital/CaffeineTABLET PO PRN ×2 (08:44→18:49)
[2017-09-09] MEDS ORDERED: *HR* Rivaroxaban 10 MG TABLET PO SCH ×2 (09:00→17:00)
[2017-09-09] MEDS ORDERED: Furosemide 20 MG/2 ML VIAL IVP PRN (09:35)
[2017-09-09] MEDS: 0.9 % Sodium Chloride 250 ML IVC SCH ×2 (10:36→19:55)
--- NOTE | 2017-09-09 10:47 | Orthopedics Progress Note ---
Date of Encounter: 09/09/17 Time of Encounter: 10:46 Subjective Interval history: Patient was seen this morning doing with expected postop pain. Afebrile vital signs stable. Operative extremity: Neurovascularly intact Dressing clean dry and intact Calves nontender Assessment and plan: Continue with postoperative care; anticipate D/C tomorrow; working on insurance approval for Rosalind Objective Vital signs: Vital Signs Temp Pulse Resp BP Pulse Ox 09/09/17 08:32 93 09/09/17 07:26 99.1 F 90 16 112/76 93 09/09/17 03:56 96.4 F L 61 16 152/87 99 09/08/17 23:10 98.0 F 67 15 142/84 95 09/08/17 19:51 93 09/08/17 19:07 97.9 F 80 15 131/89 93 09/08/17 18:20 97.7 F 80 14 118/86 94 09/08/17 16:46 98 F 85 18 124/89 99 09/08/17 15:58 97.7 F 96 16 137/85 98 09/08/17 15:32 98.1 F 85 16 129/83 100 09/08/17 15:22 87 16 128/91 100 09/08/17 15:12 80 16 122/76 95 09/08/17 15:02 98.3 F 80 16 134/85 99 09/08/17 14:52 78 16 153/106 99 09/08/17 14:42 74 16 165/104 100 09/08/17 14:32 97.2 F L 69 16 148/105 100 09/08/17 12:07 98.1 F 68 18 122/76 96 09/08/17 11:56 98.1 F 68 18 122/76 96 Intake and Output 09/08/17 09/09/17 09/09/17 23:59 07:59 15:59 Intake Total 1180 / 1180 480 / 480 Output Total 0 / 0 Balance 1180 / 1180 480 / 480 Intake: IV Fluids 100 / 100 Ancef Premix 2,000 MG/100 ML 2, 100 / 100 000 mg In 100 ml @ 200 mls/hr IVPB Q8HR ESEQUIEL Rx#:[id number] Oral 1080 / 1080 480 / 480 Output: Urine 0 / 0 Other: # Voids 1 2 - Labs CBC & BMP: 09/09/17 01:18 09/09/17 03:51 Labs: Abnormal lab results Hgb 7.3 g/dL (11.5-15.4) L D 09/09/17 01:18 Hct 22.2 % (35.3-44.9) L 09/09/17 01:18 Carbon Dioxide 20 mEq/L (23-29) L 09/09/17 03:51 Glucose 120 mg/dL (70-105) H 09/09/17 03:51 - VTE Documentation of Mechanical Device: Venous foot pump, device Consult Discharge Plan - Plan Referrals: NONE,PCP [Primary Care Provider] - Prescriptions: Rivaroxaban [Xarelto] 10 mg PO DAILY 12 Days #12 tablet
[2017-09-09] MEDS: Ringers Solution, Lactated 1,000 ML IVC SCH (11:06)
[2017-09-09] MEDS: *HR* OxyCODONE/APAP 5/325 TABLET PO PRN ×2 (15:41→21:18)
[2017-09-09] MEDS: Anastrozole 1 MG TABLET PO SCH (21:18)
[2017-09-10] MEDS: *HR* Morphine 2 MG/ML SYRINGE IVP PRN (04:37)
[2017-09-10] MEDS: Doxycycline 100 MG CAPSULE PO SCH (04:37)
[2017-09-10] MEDS: *HR* Promethazine 25 MG/ML VIAL IVP PRN (05:55)
[2017-09-10 07:03] LABS: Hematocrit 31.8 % (35.3-44.9); Hemoglobin 10.8 g/dL (11.5-15.4)
[2017-09-10 07:20] LABS: BUN/Creatinine Ratio 11 (6-26); Blood Urea Nitrogen 7 mg/dL (6-20); Calcium 9.1 mg/dL (8.6-10.3); Carbon Dioxide 26 mEq/L (23-29); Chloride 98 mEq/L (98-107); Glucose 109 mg/dL (70-105); Osmolality,Calculated 279 (280-300); Sodium 135 mEq/L (136-145); eGFR For African Americans > 60 (> 60); eGFR For Non-African Americans > 60 (> 60)
[2017-09-10] MEDS: *HR* OxyCODONE/APAP 5/325 TABLET PO PRN ×2 (07:32→12:38)
[2017-09-10 07:40] VITALS: BP 120/69
[2017-09-10] MEDS: Topiramate 25 MG TABLET PO SCH (07:41)
--- NOTE | 2017-09-10 10:58 | Orthopedics Progress Note ---
Date of Encounter: 09/10/17 Time of Encounter: 10:57 Subjective Interval history: Patient was seen this morning doing with expected postop pain. Afebrile vital signs stable. Operative extremity: Neurovascularly intact Dressing clean dry and intact Calves nontender Assessment and plan: Continue with postoperative care; patient refusing any blood thinner. Going home today. Objective Vital signs: Vital Signs Temp Pulse Resp BP Pulse Ox 09/10/17 07:37 98.4 F 93 14 120/69 96 09/10/17 04:31 99.3 F 86 16 129/77 09/10/17 01:08 98.7 F 98 16 129/82 99 09/10/17 00:50 98.7 F 88 14 145/89 100 09/09/17 23:58 99.5 F 99 17 135/82 99 09/09/17 21:00 97 09/09/17 20:39 98.6 F 108 16 143/77 97 09/09/17 17:08 99.5 F 96 16 142/81 96 09/09/17 17:01 99.3 F 103 16 142/86 99 09/09/17 15:24 98.4 F 96 17 143/84 100 09/09/17 12:08 99 F 92 16 114/72 93 Intake and Output 09/09/17 09/10/17 09/10/17 23:59 07:59 15:59 Intake Total 950 / 950 350 / 350 Balance 950 / 950 350 / 350 Intake: Oral 600 / 600 Blood Product 350 / 350 350 / 350 Rbcs Leuko Poor As-1 Unit 350 / 350 [id number] Rbcs Leuko Poor As-1 Unit 350 / 350 [id number] Other: Percent of Meal Consumed 0% # Voids 2 1 - Labs CBC & BMP: 09/10/17 06:16 09/10/17 06:16 Labs: Abnormal lab results Hgb 10.8 g/dL (11.5-15.4) L D 09/10/17 06:16 Hct 31.8 % (35.3-44.9) L 09/10/17 06:16 Sodium 135 mEq/L (136-145) L 09/10/17 06:16 Glucose 109 mg/dL (70-105) H 09/10/17 06:16 Calculated Osmolality 279 (280-300) L 09/10/17 06:16 - VTE Documentation of Mechanical Device: Venous foot pump, device Consult Discharge Plan - Plan Referrals: NONE,PCP [Primary Care Provider] - Prescriptions: Rivaroxaban [Xarelto] 10 mg PO DAILY 12 Days #12 tablet
== END 2017-09-10 12:57 | disposition home health service (06) | DRG 302 ==
LOC: SAMDAY 11:39 → 3NENU 15:50
PROVIDERS: ADMIT Orthopaedic Surgery; ATTEND Orthopaedic Surgery